=== PATIENT | female | born 1995 | race Caucasian/White ===

== ENCOUNTER 2016-08-05 06:31 | Emergency (ER) | payer MEDICAID, OTHER ==
[2016-08-05 06:41] VITALS: BP 138/72; PULSE 99; RESP 18; TEMP 98.6; O2SAT 96
--- NOTE | 2016-08-05 07:00 | EDPHY ---
H & P Time Seen by Provider: 08/05/16 06:47 HPI/ROS: Chief complaint. Chronic pain HPI. 20-year-old female presents emergency department by EMS with complaint headache. She was seen a [facility] last evening with complaint of abdominal pain. Are date night sitter physician spoke with the physician who saw her at [facility] doctor Fawad Iverson. He says that the patient was complaining of abdominal pain that was compatible with her prior angioedema. On exam she was eating mm and asking for Dilaudid. She had no tongue swelling or identifiable edema. She refused epinephrine and steroids. She was seen at [facility] early yesterday and had been admitted the day before. Prior to that she had 1 week psychiatric admission. After discharge last night she went back out to triage and complained of chest pain. She left angry because she was brought back soon enough. She then called a senior applications architect and has been driving around for several hours with the [place]. Finally the over wheelchair van driver called EMS and said that he could not get this patient out of her cab. [facility] visits in 2017 so far. The patient now tells me she has a typical migraine headache for 1 day. She is speaking in full sentences. She somewhat uncooperative. She tells me that she does not want Tylenol and then says please give me Tylenol. However she denies suicide or homicide ideation. ROS Constitutional. no fever/chills, no weakness Eyes. no problems with vision ENT. no sore throat, no nasal drainage Cardiovascular. no chest pain Respiratory. no shortness of breath, no cough Abdominal. no abdominal pain, no nausea/vomiting, no diarrhea . no problems urinating MS. no calf pain/swelling, no neck/back pain, no joint pain Skin. no rash Lymph. no swollen glands Neuro. Headache Past Medical/Surgical History: Past medical history is significant for bipolar illness, anxiety, hereditary angioedema adrenal insufficiency asthma, vocal cord dysfunction, tracheostomy, urticaria, chronic pain Social History: Single, nonsmoker, no alcohol Smoking Status: Never smoked Physical Exam: General Appearance: Alert, uncooperative female no distress vital signs are stable Eyes: Patient squeezes her eyes tightly and refused open her eyes for exam. ENT, mucous membranes are moist. She is speaking in full sentences. There is no stridor. No evidence of tongue swelling or edema Respiratory: There are no retractions, lungs are clear to auscultation. Cardiovascular: Regular rate and rhythm. Gastrointestinal: Abdomen is soft and nontender, no masses, bowel sounds normal. Neurological: Awake and alert, sensory and motor exams grossly normal. Skin: Warm and dry, no rashes. Musculoskeletal: Neck is supple nontender. Extremities symmetrical, full range of motion. Psychiatric: Patient is oriented X 3, there is no agitation. Constitutional: Initial Vital Signs Temperature (C) 37.0 C 08/05/16 06:38 Heart Rate 99 08/05/16 06:38 Respiratory Rate 18 08/05/16 06:38 Blood Pressure 138/72 H 08/05/16 06:38 O2 Sat (%) 96 08/05/16 06:38 O2 Delivery Mode Room Air Allergies/Adverse Reactions: Benzodiazepines Allergy (Severe, Verified 06/12/14 05:15) Other-Enter Comments codeine Allergy (Verified 06/12/14 05:15) Home Medications: Medication Instructions Recorded Icatibant Acetate [Firazyr] 30 mg SQ Q6 PRN 06/05/14 celeCOXIB [Celebrex] 400 mg PO BID 06/05/14 Albuterol [Proventil Inhaler HFA 1 - 2 puffs IH Q4 PRN #1 mdi 06/26/14 (*)] Budesonide 90 Mcg INH [Pulmicort 2 puffs IH BID #1 mdi 06/26/14 90 Mcg Flexhaler (*)] Cetirizine [ZyrTEC 10 mg (*)] 10 mg PO HS #14 tab 06/26/14 Fluticasone Nasal [Flonase Nasal 1 sprays [place]ACH[place]ARE BID PRN #1 mdi 06/26/14 [place]] Fluticasone/Salmeter 250/50Mcg 1 puffs IH BID #1 disk 06/26/14 [Advair 250/50 (*)] [place] Carbonate [[place] 600 mg PO BID 14 Days 06/26/14 Carbonate Cap 300 mg (*)] Montelukast Sodium [Singulair 10 10 mg PO DAILY@1800 #14 tab 06/26/14 mg (*)] OLANZapine [ZyPREXA 2.5 mg (*)] 10 mg PO HS 14 Days 06/26/14 Omeprazole [Prilosec 20 mg] 20 mg PO DAILY #14 capsule. 06/26/14 diphenhydrAMINE [Benadryl 25 MG 25 mg PO Q4 PRN #14 cap 06/26/14 (*)] Medical Decision Making Procedures: Patient is given Tylenol and Zofran at her request for headache and nausea Now just since I left the room at 7:13 a.m. the patient is ready to walk out and wants to leave ED Course/Re-evaluation: Patient refuses to wait for me to come back in and talk with her. She refuses to wait for discharge instructions. She says she is leaving now. She walks with out difficulty. She speaks without difficulty. Differential Diagnosis: Somewhat unclear why the patient is here. She tells me that she has a headache. She leaves before medication. By exam she is intact. She appears neurologically intact. She has a history of angioedema but there is no evidence of this at this point in time. She denies suicide or homicide ideation. She is uncooperative for exam, medication, discussion of how to follow up or criteria for return Departure - Departure Disposition: Home, Routine, Self-Care Clinical Impression: Headache Qualifiers: Headache type: unspecified Headache chronicity pattern: chronic headache Intractability: not intractable Qualified Code(s): R51 - Headache Condition: Good Instructions: Migraine Headache (ED) Additional Instructions: Continue regular medications. Return for worsening symptoms. Tylenol as needed for headache. Follow up with Dr. Campos at [facility]. I will also give you the name of local physician for follow- up. Referrals: Patient,NotPresent [Unknown] - As per Instructions Micheal Barr DO [Doctor of Osteopathy] - 2-3 days, call for appt.
[2016-08-05] MEDS ORDERED: ONDANSETRON DISINTEGRATING 4 MG TAB PO ONE (07:08)
[2016-08-05] MEDS ORDERED: ACETAMINOPHEN 500 MG TAB PO ONE (07:09)
== END 2016-08-05 07:15 | disposition home or self-care (01) ==
LOC: EDUNIT#
DX: R51 Headache (principal); J45.909 Unspecified asthma, uncomplicated

== ENCOUNTER 2016-08-05 09:19 | Inpatient (IN) | payer MEDICAID, OTHER ==
--- NOTE | 2016-08-05 10:20 | EDPHY ---
Addendum entered and electronically signed by Micheal Kwan MD 08/05/16 18: 07: Patient's care transferred to me at 5:00 p.m.. On my evaluation the patient is sitting and smiling and laughing and eating hamburger. She does not seem to have any difficulty with her trach eye with difficulty breathing. She is asking for chocolate milk. She has not yet been evaluated. Original Note: H & P Smoking Status: Never smoked Time Seen by Provider: 08/05/16 09:26 HPI/ROS: CHIEF COMPLAINT: Gravely disabled, chronic pain HISTORY OF PRESENT ILLNESS: 20-year-old homeless female presents to the emergency department on an M1 hold for suicidal ideation. The patient now currently denies suicidal ideation. Her hold states that she wants to lay down in traffic. Patient states "No I want to lay down and the sun." She denies homicidal ideation. The patient has multiple medical problems including angioedema. She has a trach and apparently was locked out of her hotel room last night and was unable to get the equipment that she needed. The patient is also out of her Dilaudid and oxycodone that she takes daily. She denies chest pain or difficulty breathing. She complains of diffuse pain everywhere including head, neck, extremities. She feels exhausted because she was up all night. The patient states that she does not have any family members are willing to help her anymore. She is currently homeless. REVIEW OF SYSTEMS: Constitutional: No fever, no chills. Eyes: No double or blurry vision. ENT: No sore throat. Respiratory: No cough, no shortness of breath. Cardiac: No chest pain. Gastrointestinal: Abdominal pain. No vomiting. Genitourinary: No dysuria. Musculoskeletal: Chronic neck and back pain Skin: No rashes. Neurological: headache. (Lakia Cee) Past Medical/Surgical History: Bipolar, anxiety, hereditary angioedema, adrenal insufficiency, asthma, vocal cord dysfunction, tracheostomy, urticaria, chronic pain, opioid dependent. ( Lakia Cee) Social History: From [place]. Currently homeless (Lakia Cee) Physical Exam: General Appearance: Alert, no distress. 126/86, 92, 99% on room air, afebrile. Patient has tracheostomy however no tube present. No respiratory distress. Eyes: Pupils equal and round. Extraocular motions are all intact. Large, reactive pupils. ENT: Mouth: Mucous membranes moist. Respiratory: No wheezing, rhonchi, or rales, lungs are clear to auscultation. Cardiovascular: Regular rate and rhythm. Gastrointestinal: Abdomen is soft and nontender, no masses, no rebound or guarding, bowel sounds normal. Neurological: Alert and oriented x 3, cranial nerves II through XII grossly intact Skin: Warm and dry, no rashes. Diffuse ecchymosis to the upper extremities from multiple IV attempts and blood draw. Musculoskeletal: Nontender to palpate along the cervical, thoracic or lumbar spine. Neck is supple. Extremities: Full range of motion and no peripheral edema. Psychiatric: Patient is oriented X 3, there is no agitation. (Lakia Cee) Constitutional: Initial Vital Signs Temperature (C) 37.1 C 08/05/16 09:50 Heart Rate 92 08/05/16 09:50 Respiratory Rate 18 08/05/16 09:50 Blood Pressure 126/86 H 08/05/16 09:50 O2 Sat (%) 99 08/05/16 09:50 O2 Delivery Mode Room Air Allergies/Adverse Reactions: Benzodiazepines Allergy (Severe, Verified 06/12/14 05:15) Other-Enter Comments codeine Allergy (Verified 06/12/14 05:15) Home Medications: Medication Instructions Recorded Icatibant Acetate [Firazyr] 30 mg SQ Q6 PRN 06/05/14 celeCOXIB [Celebrex] 400 mg PO BID 06/05/14 Albuterol [Proventil Inhaler HFA 1 - 2 puffs IH Q4 PRN #1 mdi 06/26/14 (*)] Budesonide 90 Mcg INH [Pulmicort 2 puffs IH BID #1 mdi 06/26/14 90 Mcg Flexhaler (*)] Cetirizine [ZyrTEC 10 mg (*)] 10 mg PO HS #14 tab 06/26/14 Fluticasone Nasal [Flonase Nasal 1 sprays [place] BID PRN #1 mdi 06/26/14 [place]] Fluticasone/Salmeter 250/50Mcg 1 puffs IH BID #1 disk 06/26/14 [Advair 250/50 (*)] [place] Carbonate [[place] 600 mg PO BID 14 Days 06/26/14 Carbonate Cap 300 mg (*)] Montelukast Sodium [Singulair 10 10 mg PO DAILY@1800 #14 tab 06/26/14 mg (*)] OLANZapine [ZyPREXA 2.5 mg (*)] 10 mg PO HS 14 Days 06/26/14 Omeprazole [Prilosec 20 mg] 20 mg PO DAILY #14 capsule. 06/26/14 diphenhydrAMINE [Benadryl 25 MG 25 mg PO Q4 PRN #14 cap 06/26/14 (*)] Medical Decision Making ED Course/Re-evaluation: 20-year-old female presents to the emergency department on hold. Patient has been seen multiple times in various emergency departments including mostly at [facility]. [facility] The provider who saw her earlier today, Dr. Roland Roman, feels that she is gravely disabled needs a mental health evaluation. Urinalysis reveals positive for opiates. Her ETOH breath was negative. Patient has been admitted to numerous hospitals and because we are unable to obtain laboratory studies or IV access in the emergency department, I consulted [facility] and the patient was found to have normal chemistries and normal CBC on August 02, 2016 and August 04, 2016. The patient is awaiting mental health evaluation by EPS. (Lakia Cee) I did not see this patient while she was in the emergency department. However her care was discussed with the PA while the patient was in the department. I agree with treatment plan and management (Roland Roman) Differential Diagnosis: Depression including functional and major depression, situational depression, medication side effect, drugs and alcohol abuse. (Lakia Cee) - Data Points Laboratory Results: 08/05/16 09:44 Urine Opiates Screen NON-NEGATIVE H (NEGATIVE) Urine Barbiturates NEGATIVE (NEGATIVE) Ur Phencyclidine Scrn NEGATIVE (NEGATIVE) Ur Amphetamine Screen NEGATIVE (NEGATIVE) U Benzodiazepines Scrn NEGATIVE (NEGATIVE) Urine Cocaine Screen NEGATIVE (NEGATIVE) U Marijuana (THC) Screen NEGATIVE (NEGATIVE) Medications Given: Discontinued Medications Diphenhydramine HCl (Benadryl) 25 mg PO EDNOW ONE Stop: 08/05/16 12:35 Last Admin: 08/05/16 12:59 Dose: Not Given Departure - Departure Clinical Impression: Bipolar 1 disorder Chronic pain Qualifiers: Chronic pain type: other chronic pain Qualified Code(s): G89.29 - Other chronic pain Condition: Good Referrals: NONE *PRIMARY CARE P,. [Primary Care Provider] - As per Instructions
[2016-08-05] MEDS ORDERED: diphenhydrAMINE 25 MG CAP PO ONE ×2 (12:34→22:06)
[2016-08-05] MEDS ORDERED: CETIRIZINE 10 MG TAB PO ONE (22:06)
[2016-08-05] MEDS ORDERED: ACETAMINOPHEN 500 MG TAB PO ONE (22:06)
[2016-08-05] MEDS ORDERED: PROMETHAZINE HCL 25 MG TAB PO ONE (22:06)
[2016-08-05] MEDS ORDERED: cycloSPORINE 100 MG CAP PO ONE (22:09)
[2016-08-06] MEDS ORDERED: FAMOTIDINE 20 MG TAB ONE (14:13)
[2016-08-06] MEDS ORDERED: IBUPROFEN 600 MG TAB PO ONE ×4 (14:13→19:49)
[2016-08-06] MEDS ORDERED: FAMOTIDINE 20 MG TAB PO ONE (14:17)
[2016-08-06] MEDS ORDERED: diphenhydrAMINE 12.5 MG/5 ML UDCUP ONE (15:32)
[2016-08-06] MEDS ORDERED: diphenhydrAMINE 12.5 MG/5 ML UDCUP PO ONE (15:37)
[2016-08-06] MEDS ORDERED: HYDROmorphONE/DILAUDID 2 MG TAB ONE (16:21)
[2016-08-06] MEDS ORDERED: ALBUTEROL INH PREPACK MDI TAKEHOME ONE ×2 (16:22→16:50)
[2016-08-06] MEDS ORDERED: HYDROmorphONE/DILAUDID 2 MG TAB PO ONE (16:49)
[2016-08-06] MEDS ORDERED: CETIRIZINE 10 MG TAB PO ONE (19:49)
[2016-08-06] MEDS ORDERED: PROMETHAZINE HCL 25 MG TAB PO ONE (19:49)
[2016-08-06] MEDS ORDERED: ONDANSETRON DISINTEGRATING 4 MG TAB PO PRN (21:24)
[2016-08-06] MEDS ORDERED: ONDANSETRON 4 MG/2 ML VIAL IVP PRN (21:24)
[2016-08-06] MEDS ORDERED: ALBUTEROL 60 PUFFS/8 GM MDI IH PRN (21:27)
[2016-08-06] MEDS ORDERED: ACETAMINOPHEN 500 MG TAB PO PRN (21:27)
[2016-08-06] MEDS ORDERED: ALBUTEROL 3 ML DEYVIAL IH PRN (21:27)
[2016-08-06] MEDS ORDERED: methylPREDNISolone SOD SUCC 125 MG/2 ML VIAL IVP ONE (21:28)
[2016-08-06] MEDS ORDERED: NS 1,000 ML IV SCH (21:30)
[2016-08-06] MEDS ORDERED: traZODone 50 MG TAB PO PRN (21:45)
[2016-08-06] MEDS ORDERED: cycloSPORINE 100 MG CAP PO ONE (22:09)
--- NOTE | 2016-08-06 22:21 | GHP ---
[f rep st] HISTORY AND PHYSICAL DATE OF ADMISSION: 08/06/2016 HISTORY OF PRESENT ILLNESS: The patient is a 20-year-old female with a history of hereditary angioe cliff, borderline personality disorder. The patient was brought to the emergency department yesterda y with suicidality. It was said she wanted to lay down in traffic at that time. She denies that an d says she wanted to lie down in the sun. She has been in the hospital from 34 hours. This afterno on, she began developing some tongue swelling. At times, she the patient is somewhat uncooperative in the emergency department as well. Stating that she wanted to speak with a hydropress operator, because her ri ghts were not being upheld, and notably she is on M1 hold. When I speak with the patient today, she complains of tongue swelling, felt consistent with an angio edema flare. She does have a tracheostomy tube, however, the tracheostomy tube itself came out, so she just has an open stoma which is patent, and she is breathing comfortably through that. She says this is consistent with her hereditary angioedema flares. She states she has mild abdominal pain, which is consistent with her flares. She denies shortness o f breath. She denies pruritus. I did not discuss her psychiatric condition with her, other than ac knowledging that she is waiting for further psychiatric evaluation. Regarding her angioedema flare, she says she feels it is an appropriate time to get some icatibant. REVIEW OF SYSTEMS: A complete 10-point review of systems was conducted and negative, except as note d in the HPI. PAST MEDICAL HISTORY: 1. Hereditary angioedema. 2. Tracheostomy. 3. Asthma. 4. Adrenal insufficiency. 5. Possible vocal cord dysfunction. 6. Bipolar. 7. Anxiety. ALLERGIES: Benzodiazepine, barbiturates and codeine. MEDICATIONS: Albuterol, hydromorphone, oxycodone, Advair, ibuprofen, Tylenol, trazodone, Benadryl, celecoxib, ranitidine, promethazine, escitalopram, cetirizine, albuterol. SOCIAL HISTORY: The patient is homeless. Nonsmoker. FAMILY HISTORY: Reviewed and unremarkable. PHYSICAL EXAM: VITAL SIGNS: Temperature 36.5, blood pressure 131/101, pulse 102, breathing 18 time s a minute, 95% on room air. GENERAL: No acute distress. HEENT: Sclerae anicteric. Oropharynx s hows an enlarged tongue that is sticking out of her mouth. She is not able to retract it. Per the emergency medicine doctor, an hour earlier was able to retract it. She does not appear dyspneic. S he is able to breathe through a tracheostomy. NECK: Supple. Her tracheostomy stoma is clean, dry, intact and patent. Her lungs are clear to auscultation bilaterally. There is mild wheeze. There is good air movement. HEART: S1, S2. Not tachycardic. ABDOMEN: Soft. There is diffuse tenderne ss, but there is no rebound or guarding. LOWER EXTREMITIES: Without edema. Calves nontender. SKI N: Notable for multiple striae on her abdomen. LABS: There are no labs, but recent review of her chemistries and suggested that her blo od counts are normal. There is no imaging. I have discussed the case with Dr. Micheal Kwan. ASSESSMENT/PLAN: A 20-year-old female with hereditary angioedema and suicidality, here on an M1 hol d, now with subsequent probable angioedema flare. 1. Angioedema flare. The patient is breathing comfortably, not dyspneic, walking around. This is either secondary to the fact that this presentation is part of her psychiatric presentation or that her trach is patent. Either way, I think it is reasonable to treat her for a flare. I have written for some Solu-Medrol and Benadryl and am inquiring with the pharmacy if icatibant is available. Jacob hannah will be admitted to this Intensive Care Unit. She does not appear to have an airway issue at this time. 2. M1 hold. The patient is on an M1 hold. She is not medically cleared at this time. 3. Asthma. Will continue her inhalers and Advair. 4. Chronic pain. She can have some narcotics, as prescribed. 5. Prophylaxis. She is low risk. 6. Disposition: Inpatient status. /[id number]/MODL
[2016-08-06] MEDS: HYDROmorphONE/DILAUDID 2 MG TAB PO PRN (23:18)
[2016-08-07] MEDS: PROMETHAZINE HCL 25 MG/ML INJ IVP PRN ×3 (00:55→17:00)
[2016-08-07] MEDS ORDERED: ACETAMINOPHEN 650 MG/20.3 ML UDCUP ONE (01:26)
[2016-08-07] MEDS: ACETAMINOPHEN 325 MG TAB PO PRN ×2 (01:28→13:28)
[2016-08-07] MEDS ORDERED: ESCITALOPRAM OXALATE 10 MG TAB PO SCH (09:00)
[2016-08-07] MEDS ORDERED: Fluticasone/Salmeterol [Advair Hfa 230-21 Mcg Inhaler] 2 PUFFS IH SCH (09:00)
[2016-08-07] MEDS ORDERED: FAMOTIDINE 20 MG TAB PO SCH (09:00)
[2016-08-07] MEDS ORDERED: CETIRIZINE 10 MG TAB PO SCH (09:00)
--- NOTE | 2016-08-07 09:17 | GCON ---
[f rep st] CONSULTATION PROSTHODONTIST/EDUCATOR CONSULTATION REASON FOR ADMISSION: Angioedema, tracheostomy, M1 hold. HISTORY OF PRESENT ILLNESS: The patient is a 20-year-old, white female, with extensive past medical history including hereditary angioedema, tracheostomy, asthma, adrenal insufficiency, vocal cord dy sfunction, bipolar disease, and anxiety. She presented to the emergency room with possible suicidal ideation. She was admitted, but began developing some tongue swelling. She has had angioedema fla res throughout her life. Her tracheostomy tube had been removed, I believe, by the patient. She sam s an open stoma and she is breathing comfortably. Currently, she is resting comfortably [facility]. PAST MEDICAL HISTORY: Significant for hereditary angioedema, tracheostomy, asthma, adrenal insuffic iency, vocal cord dysfunction, bipolar disease, anxiety. ALLERGIES: To benzodiazepines, barbiturates, and codeine. SOCIAL HISTORY: She is a nonsmoker. Apparently, she is homeless. MEDICATIONS: Personal indications include albuterol, hydromorphone, oxycodone, Advair, ibuprofen, T ylenol, trazodone, Benadryl, ranitidine promethazine cetirizine, and albuterol. PHYSICAL EXAM: VITAL SIGNS: Blood pressure is 118/66, pulse is 64, respirations 14, she is afebril e, oxygen saturation 93% on room air. GENERAL: She is a mildly overweight, 20-year-old, white fema le, who is resting comfortably, in no acute distress. HEENT: BRETT, EOMI. Throat: She has modera te tongue swelling. NECK: Supple. Tracheostomy site is open. HEART: Regular rate and rhythm wit hout murmurs, rubs, or gallops. LUNGS: Clear to auscultation. No wheeze or rhonchi. ABDOMEN: So ft, nontender. Bowel sounds are present in all 4 quadrants. EXTREMITIES: No clubbing, cyanosis, o r edema. LABORATORIES: Urine drug screen is non-negative for opiates. IMPRESSION: 1. Hereditary angioedema. She is currently stable, though is having some tongue swelling. 2. Tracheostomy tube is currently out. She requires a size 4, non-cuffed. 3. Asthma. Currently, stable. 4. Adrenal insufficiency. 5. Bipolar. 6. Anxiety. 7. Suicidal ideation. RECOMMENDATIONS: 1. Agree with continuation of M1 hold. 2. Agree with current treatment with Benadryl and Solu-Medrol. 3. The patient currently is in the intensive care unit. 4. Nebulized treatment with albuterol. 5. Continue her M1 hold. 6. Close cardiopulmonary monitoring. /[id number]/MODL
[2016-08-07 09:30] VITALS: RESP 16; TEMP 98
[2016-08-07] MEDS ORDERED: oxyCODONE IR 5 MG TAB PO PRN (10:30)
[2016-08-07] MEDS: HYDROmorphONE/DILAUDID 2 MG TAB PO PRN ×2 (10:57→17:00)
[2016-08-07] MEDS ORDERED: BUDESONIDE/FORMOTEROL 160/4.5 60 PUFFS/MDI IH SCH (11:00)
--- NOTE | 2016-08-07 11:42 | HOSPPROG ---
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 denies SI/HI Objective: Vital Signs Temp Pulse Resp BP Pulse Ox 36.7 C 98 16 121/77 H 98 08/07/16 09:30 08/07/16 11:15 08/07/16 11:15 08/07/16 11:15 08/07/16 11:15 08/06/16 08/07/16 08/08/16 05:59 05:59 05:59 Intake Total 1126 Balance 1126 - Physical Exam Constitutional: no apparent distress, appears nourished, not in pain Ears, Nose, Mouth, Throat: moist mucous membranes, hearing normal, ears appear normal, no oral mucosal ulcers, other (no tongue or posterior airway swelling) Cardiovascular: regular rate and rhythym, no murmur, rub, or gallop Respiratory: no respiratory distress, no rales or rhonchi, clear to auscultation Gastrointestinal: normoactive bowel sounds, soft, non-tender abdomen, no palpable masses ICD10 Worksheet Patient Problems: Problems Problem Status Onset Angioedema Active Vocal cord dysfunction Active Bipolar 1 disorder Acute Chronic pain Acute
[2016-08-07 16:10] VITALS: BP 117/73; PULSE 80; O2SAT 92
[2016-08-07] MEDS ORDERED: LIDOCAINE 5% 1 EA PATCH TD SCH (17:00)
[2016-08-07] MEDS ORDERED: LIDOCAINE HCL 4% TOPICAL SOLN 50ML ONE (17:50)
[2016-08-07] MEDS ORDERED: LIDOCAINE 2% JELLY 5 ML TUBE ONE (17:54)
[2016-08-07] MEDS ORDERED: methylPREDNISolone SOD SUCC 125 MG/2 ML VIAL ONE (18:19)
[2016-08-07] MEDS ORDERED: EPINEPHrine 1 MG/10 ML SYR IVP ONE (18:23)
[2016-08-07] MEDS ORDERED: methylPREDNISolone SOD SUCC 125 MG/2 ML VIAL IVP ONE (18:23)
[2016-08-07] MEDS ORDERED: fentaNYL 100 MCG/2 ML INJ IVP PRN (18:31)
[2016-08-07] MEDS ORDERED: PATCH REMOVAL 1 EA PATCH TD SCH (21:00)
--- NOTE | 2016-08-07 21:58 | GCON ---
[f rep st] CONSULTATION OTORHINOLARYNGOLOGY CONSULTATION DATE OF CONSULTATION: 08/07/2016 REASON FOR CONSULTATION: Tracheostomy site evaluation and replacement of tracheostomy. HISTORY OF PRESENT ILLNESS: This is a 20-year-old female with a history of hereditary angioedema an d a tracheostomy who was brought into the emergency room just under 48 hours ago and put on am M1 ho ld for suicidal ideation. During the patient's emergency room visit, the 4-0 Shiley tracheostomy ca me out of the site. I was notified at this. It is unclear how much later, but anywhere from 24-48 hours later on the in the evening, and apparently Respiratory Therapy had tried to get the trac h in, but were unable to do so. The patient reports that she is breathing okay, but her tongue is c urrently swelling. She has had several issues with various medications, anesthesia, and surgery, an d she refuses to go to the operating room here for me to revise her tracheostomy site. After a long discussion with the patient, she said she will let me attempt to replace the 4-0 Shiley at the beds jacobo in the ICU. If that does not work, she wanted to be transferred down to the [place], and to secure her airway for the transfer, she is requiring oral intubation. PHYSICAL EXAM: GENERAL: The patient is awake, alert. HEENT: Her tongue is partially protruding f rom her mouth and somewhat swollen. VITAL SIGNS: She has normal oxygen saturation. No respiratory distress. PSYCHIATRIC: The patient has been mentating normally, although has several demands and requests and is very particular on her care. NECK: In the anterior supraclavicular region, she has a small tracheostomy site with scarring and no visible stoma through to her trachea that is visible . With intermittent respirations, I am able to see the lumen and the posterior wall of her trachea, but this is only intermittent. Despite this, she is breathing normally. PROCEDURE: Attempt at replacement of her tracheostomy. After verbal consent from the patient, she was placed supine. All pillows removed. Headlight was placed on. The patient refused topical lido mak because she said she could handle lidocaine and would only let me use non-lidocaine jelly. A 4-0 uncuffed, nonfenestrated Shiley with the obturator was attempted to be placed in through this si te, but patient asked me to stop because she was uncomfortable and was starting to breathe with some difficulty. I did stop. We sat her up. She was able to calm down. At no point did her oxygen dr op. At this point, I used a 12-Kazakh tracheostomy suction and I was easily able to slide this in t hrough the stoma. When again trying to slide the 4-0 Shiley over the suction catheter, the patient started to get uncomfortable and asked me to stop and refused to let me continue with the procedure. At this point, I terminated the procedure, and the patient and I again discussed the next option. She insisted on oral intubation and transfer down to the [place] and did not want me to proceed with any type of further revision of her tracheostomy here. Therefore, at this point, the care was then transferred and Anesthesia was called to intubate the patient. ASSESSMENT: This is a 20-year-old female with a history of hereditary angioedema and tracheostomy t hat is been decannulated and stoma has mostly closed. PLAN: The plan would be to orally intubate the patient and transfer down to the [place] for furt her care, per patient's request. /[id number]/MODL
--- NOTE | 2016-08-07 22:03 | GDS ---
[f rep st] DISCHARGE SUMMARY DISCHARGE DIAGNOSES: 1. Resolved suicidal ideation. 2. History of angioedema with possible flare. 3. Controlled asthma. 4. Chronic bone pain secondary to osteoporosis from prior steroid use. 5. History of vocal cord dysfunction. 6. Bipolar mood disorder. CONSULTANTS: Dr. Kajal Potter, ENT. Dr. Willie Babb, Pulmonology Critical Care. HOSPITAL COURSE: 1. Angioedema flare. The patient was admitted to the intensive care unit where her symptoms were controlled with Benadryl and steroids. Prior to coming into the intensive care unit, the patient pulled out her 4-0 Shiley trach 48 hours ago. ENT was consulted to attempt to replace the trach. Unfortunately, we were unable to replace the trach at bedside. The patient then requested transfer to the [facility] for tracheostomy under anesthesia. The patient refused tracheostomy here at [facility]. We recommended that she be electively intubated and attempted to arrange transfer to the [facility] for further care. The patient adamantly refused this plan for intubation. She is well aware and able to communicate the risks and benefits of losing her airway and possible if she were to leave the hospital and have a significant flare. Despite this, the patient was fairly adamant about leaving as soon as possible. She signed against medical advice. 2. Suicidal ideation. The patient was initially placed on M1 hold since she had communicated to the emergency department that she wanted to lie in the street. On day of discharge, the patient adamantly denies any suicidal ideation or homicidal ideation. She tells me that she does not want to and would like to continue living. Subsequently, M1 hold was rescinded. Also of note, the patient had a very similar episode to this when she was last admitted to [facility] in May of 2014. At that time she was stabilized in the hospital and ultimately transferred to the behavioral health unit where it was thought that her Bipolar brain was likely contributing to her reports of angioedema flare. She was started on Cornelia and Zyprexa at bedtime which she apparently tolerated and did well on. She should have further psychiatric evaluation to help improve her mood. PHYSICAL EXAMINATION: Refer to progress note in [facility]. DISCHARGE MEDICATIONS: Please refer to discharge medication reconciliation in [facility]. The patient was instructed to continue her home medications. DISCHARGE INSTRUCTIONS: Once again the patient has elected to leave the hospital against medical advice and takes full responsibility for her decision which I believe she is capable of making since she is able to clearly explain to me the risks and benefits of further treatment and the consequences of withholding treatment which can include . Greater than 30 minutes were spent on the discharge of this patient /[id number]/MODL MTDD
== END 2016-08-07 19:45 | disposition left against medical advice (07) | DRG 642 ==
LOC: EDUNIT# → OBSVTOIN 08-06 21:24 → EEVIPCON 08-06 21:24 → F2N 08-06 21:41
PROVIDERS: ADMIT Internal Medicine; ATTEND Family Medicine
DX: D84.1 Defects in the complement system (principal); Z93.0 Tracheostomy status; Z53.29 Procedure and treatment not carried out because of patient's decision for other reasons; R45.851 Suicidal ideations; J45.909 Unspecified asthma, uncomplicated; E27.40 Unspecified adrenocortical insufficiency; F11.20 Opioid dependence, uncomplicated; F31.9 Bipolar disorder, unspecified; F41.9 Anxiety disorder, unspecified; G89.29 Other chronic pain; M81.8 Other osteoporosis without current pathological fracture; Z87.310 Personal history of (healed) osteoporosis fracture; Z59.0 Homelessness
CPT/HCPCS: 80305; J0171; J1200; J2550; J3010; J7502